=== PATIENT | male | born 1990 | race Caucasian/White ===

== ENCOUNTER 2016-07-23 18:50 | Emergency (ER) | payer SELFPAY ==
[2016-07-23] MEDS ORDERED: AMOXicillin 250 MG CAP ONE (19:21)
[2016-07-23] MEDS ORDERED: HYDROcodone/Acetaminophen 10/325 mg Tablet ONE (19:21)
[2016-07-23] MEDS ORDERED: Ibuprofen 800 MG TAB ONE (19:21)
== END 2016-07-23 19:32 | disposition home or self-care (01) ==
LOC: BURERS 18:50
DX: S02.5XXA Fracture of tooth (traumatic), initial encounter for closed fracture (principal); X58.XXXA Exposure to other specified factors, initial encounter
CPT/HCPCS: 99282

== ENCOUNTER 2016-09-09 14:19 | Emergency (ER) | payer SELFPAY ==
[2016-09-09 16:12] LABS: #Basophils 0.2 thou/uL (0.0-0.2); #Lymphocytes 2.2 thou/uL (1.20-3.40); #Monocytes 0.5 thou/uL (0.11-0.59); #Neutrophils 4.5 thou/uL (1.40-6.50); %Basophils 2.3 % (0.0-1.0); %Eosinophils 21.5 % (0.0-10.0); %Lymphocytes 23.4 % (21.0-51.0); %Monocytes 5.3 % (0.0-10.0); %Neutrophils 47.5 % (42.0-75.0); Hemoglobin 15.8 g/dL (14.0-18.0); Mean Corpuscular HGB CONC 33.7 g/dL (32.0-36.0); Mean Corpuscular Hemoglobin 31.2 pg (27.0-31.0); Mean Corpuscular Volume 92.5 fl (80.0-94.0); Mean Platelet Volume 8.6 fL (7.4-10.4); Platelet Count 212 thou/uL (130-400); RBC Distribution Width 11.7 % (11.5-14.5); Red Blood Cell (RBC) Count 5.08 mill/uL (4.70-6.10); White Blood Cell (WBC) Count 9.4 thou/uL (4.8-10.8)
[2016-09-09 16:28] LABS: CKMB 0.8 ng/mL (0-6.6); Troponin I Less than 0.010 ng/mL (< 0.028)
--- NOTE | 2016-09-09 17:41 | RAD ---
CHEST 2 VIEWS: Date: 09/09/16 FINDINGS: The heart is normal in size. No lobar consolidation or effusion seen. Some of the right basilar yin ings medially are a little more prominent than usual, but when I look on the lateral view, I cannot confirm any infiltrate here. At most, there may be some generalized prominence of the overall lung m arkings. IMPRESSION: Marginal findings as listed above. POS: HOME
== END 2016-09-09 16:59 | disposition home or self-care (01) ==
LOC: BURERS 14:19
DX: J06.9 Acute upper respiratory infection, unspecified (principal)
CPT/HCPCS: 36415; 71020; 82553; 84484; 85025; 93005

== ENCOUNTER 2017-04-10 23:32 | Emergency (ER) | payer SELFPAY | END 2017-04-11 00:26 | disposition home or self-care (01) | LOC: BURERS 23:32 | DX: J11.1 Influenza due to unidentified influenza virus with other respiratory manifestations (principal); K02.9 Dental caries, unspecified; K03.81 Cracked tooth | CPT/HCPCS: 99282 ==

== ENCOUNTER 2017-04-28 10:27 | Emergency (ER) | payer SELFPAY | END 2017-04-28 10:52 | disposition home or self-care (01) | LOC: BURERS 10:27 | DX: K02.9 Dental caries, unspecified (principal) | CPT/HCPCS: 99282 ==

== ENCOUNTER 2018-12-30 10:30 | Emergency (ER) | payer OTHER, SELFPAY ==
[2018-12-30 11:03] LABS: #Basophils 0.1 thou/uL (0.0-0.2); #Eosinphils 0.3 thou/uL (0.0-0.7); #Lymphocytes 1.8 thou/uL (1.20-3.40); #Monocytes 0.5 thou/uL (0.11-0.59); #Neutrophils 4.6 thou/uL (1.40-6.50); %Basophils 0.9 % (0.0-1.0); %Eosinophils 3.9 % (0.0-10.0); %Lymphocytes 24.9 % (21.0-51.0); %Monocytes 7.2 % (0.0-10.0); %Neutrophils 63.2 % (42.0-75.0); Mean Corpuscular HGB CONC 32.8 g/dL (32.0-36.0); Mean Corpuscular Hemoglobin 30.6 pg (27.0-31.0); Mean Corpuscular Volume 93.3 fL (78.0-98.0); Mean Platelet Volume 7.5 fL (7.4-10.4); Platelet Count 180 thou/uL (130-400); RBC Distribution Width 11.5 % (11.5-14.5); Red Blood Cell (RBC) Count 4.91 mill/uL (4.70-6.10); White Blood Cell (WBC) Count 7.2 thou/uL (4.8-10.8)
[2018-12-30 11:08] LABS: Bilirubin Small (Negative); Blood, Urine Negative (Negative); Clarity Clear (Clear); Glucose, Urine (Dipstick) Negative (Negative); Leukocyte Negative (Negative); Nitrite Negative (Negative); Protein, Urine (Dipstick) Trace mg/dL (Neg-Trace)
[2018-12-30 11:16] LABS: Amphetamine Not Detected (NotDetected); Barbiturates Screen Not Detected (NotDetected); Benzodiazepine Screen Not Detected (NotDetected); Cocaine Metabolite Screen Not Detected (NotDetected); Medtox Control Line Valid? VALID (VALID); Methadone Not Detected (NotDetected); Methamphetamine Not Detected (NotDetected); Opiate Screen Not Detected (NotDetected); Oxycodone Screen Not Detected (NotDetected); Phencyclidine (PCP) Not Detected (NotDetected); THC/Cannabinoid Screen Detected (NotDetected); Tricyclic Screen Not Detected (NotDetected)
[2018-12-30 11:17] LABS: ALT (SGPT) 19 U/L (8-55); AST (SGOT) 16 U/L (5-34); Albumin 4.5 g/dL (3.5-5.0); Alkaline Phosphatase 53 U/L (40-110); Anion Gap 12 mmol/L (10-20); BUN (Urea Nitrogen) 14 mg/dL (8.9-20.6); Bilirubin, Total 0.3 mg/dL (0.2-1.2); Calc. Creatinine Clearance 0 mL/min (70-130); Calcium 9.3 mg/dL (7.8-10.44); Carbon Dioxide 29 mmol/L (22-29); Chloride 105 mmol/L (98-107); Estimated GFR-MDRD Greater than 90; Globulin 2.4 g/dL (2.4-3.5); Glucose 96 mg/dL (70-105); Potassium 3.9 mmol/L (3.5-5.1); Protein, Total 6.9 g/dL (6.0-8.3); Sodium 142 mmol/L (136-145)
[2018-12-30 11:18] LABS: Acetaminophen Less than 6.0 mcg/mL (10.0-30.0); Alcohol Less than 10 mg/dL (Less than 10); Salicylate Less than 8.0 mg/dL (15.0-30.0)
--- NOTE | 2018-12-30 15:27 | CT ---
CT BRAIN WITHOUT CONTRAST: Date: 12/30/18 The ventricles are normal in size and show no shift. No intracranial bleeding, mass, or sign of strok e found. There is good crowder-white distinction. The skull appears normal and the visible paranasal sin uses are clear. IMPRESSION: No acute findings. POS: HOME
--- NOTE | 2018-12-30 15:28 | RAD ---
PORTABLE CHEST: Date: 12/30/18 An AP portable film at 1057 hours is compared with a 09/09/16 study. The heart is normal in size for an AP film. It may be upper normal. There is no congestion, edema, or pleural effusion. The lungs are clear. IMPRESSION: No acute findings. POS: HOME
== END 2018-12-30 11:44 | disposition home or self-care (01) ==
LOC: BURERS 10:30
DX: R41.82 Altered mental status, unspecified (principal); F41.9 Anxiety disorder, unspecified
CPT/HCPCS: 36415; 70450; 71045; 80053; 80306; 80307; 81003; 83605; 83735; 84443; 84484; 85025; 93005; 94760

== ENCOUNTER 2021-10-23 18:22 | Emergency (ER) | payer SELFPAY ==
[2021-10-23] MEDS ORDERED: Acetaminophen 325 MG TAB ONE (19:14)
[2021-10-23] MEDS ORDERED: Ibuprofen 200 MG TAB ONE (19:14)
[2021-10-23] MEDS ORDERED: Doxycycline 100 MG CAP ONE (20:45)
== END 2021-10-23 21:07 | disposition home or self-care (01) ==
LOC: BURERS 18:22
DX: U07.1 COVID-19 (principal); J12.82 Pneumonia due to coronavirus disease 2019
CPT/HCPCS: 71045; 87804; U0003; U0005